=== PATIENT | male | born 2000 | race Caucasian/White ===

== ENCOUNTER 2018-06-03 09:18 | Emergency (ER) | payer SELFPAY ==
[~2018-06-03] VITALS: Ht 172.7 cm; Wt 80.0 kg
[2018-06-03 12:21] LABS: BASOPHILS % 0.2 % (0.0-2.0); EOSINOPHILS % 0.4 % (0.0-5.0); HEMATOCRIT. 42.4 % (42.0-52.0); HEMOGLOBIN. 14.1 g/dL (14.0-18.0); LYMPHOCYTES % 10.4 % (20.0-50.0); MEAN CORPUSCULAR HEMOGLOBIN 28.6 pg (28.0-32.0); MEAN CORPUSCULAR VOLUME 85.6 fL (80.0-94.0); MEAN PLATELET VOLUME 7.1 fl (7.4-10.4); MONOCYTES % 4.3 % (2.0-8.0); NEUTROPHILS % 84.7 % (40.0-76.0); PLATELET 264 x1000/uL (130-400); RED BLOOD CELL COUNT 4.95 mill/uL (4.7-6.1); RED CELL DISTRIBUTION WIDTH 14.6 % (11.6-14.6)
[2018-06-03 12:24] LABS: CHLORIDE 106 mEq/L (98-107)
[2018-06-03 12:41] VITALS: BP 113/61
== END 2018-06-03 15:41 | disposition home or self-care (01) ==
LOC: ER 10:12
DX: R55 Syncope and collapse (principal)
CPT/HCPCS: 36415; 93005; 99284